=== PATIENT | male | born 2000 | race Asian ===

== ENCOUNTER 2024-01-19 07:35 | Emergency (ER) | payer OTHER ==
[~2024-01-19] VITALS: Ht 170.2 cm; Wt 59.4 kg
[2024-01-19] MEDS ORDERED: DOXY100C82 PO (11:59)
[2024-01-19 12:22] VITALS: BP 131/95; TEMP 97.3; O2SAT 100
== END 2024-01-19 12:20 | disposition home or self-care (01) ==
LOC: M ED 07:35 → EDBD 07:35 → M ED 12:20
DX: L76.32 Postprocedural hematoma of skin and subcutaneous tissue following other procedure (principal); Z79.2 Long term (current) use of antibiotics